=== PATIENT | female | born 1965 | race Caucasian/White ===

== ENCOUNTER 2018-01-17 08:41 | Day surgery (SDC) | payer OTHER, SELFPAY ==
[2018-01-17 08:58] VITALS: BP 140/86; PULSE 92; RESP 16; TEMP 36.7; O2SAT 100; BMI 25.6
[2018-01-17] MEDS: SODIUM CHLORIDE 0.9% 1,000 ML 200 ML IV (09:29)
--- NOTE | 2018-01-17 10:00 | PM.HP.1 ---
History of Present Illness Date Patient Seen: 01/17/18 Time Patient Seen: 10:01 Chief complaint: colonoscopy 40304 Narrative: Patient is woman here for a screening colonoscopy. She had a colonoscopy about 12 years ago to evaluate some abdominal complaints. No family history. Patient History Medical History Dysthymic disorder (Chronic) Panic disorder without agoraphobia (Chronic) Major depressive disorder, recurrent, moderate (Chronic) Actinic keratoses (Chronic Unknown) Anxiety (Chronic Unknown) Carpal tunnel syndrome (Chronic ~11/2016) Depression (Chronic Unknown) GERD (gastroesophageal reflux disease) (Chronic Unknown) Migraines (Chronic Unknown) Chickenpox (Resolved Unknown) Surgical History History of third molar tooth extraction History of tonsillectomy Status post appendectomy Family & Social History Family History: Reviewed 01/17/18 by Herberth Valdez MD Social History: household members none Tobacco & Substance use: Smoking Status Never smoker alcohol intake current Meds Home Medications Medication Instructions Recorded Confirmed Type multivitamin [Multiple Vitamins] 1 tab PO QDAY #0 11/26/16 01/17/18 History [Massage Therapy] ea 2XMONTH #24 05/23/17 11/28/17 Rx venlafaxine 100 mg tablet 150 mg PO ONCE tab 10/28/17 01/17/18 History eszopiclone 3 mg tablet 3 mg PO HS PRN #0 11/28/17 01/17/18 History ranitidine 150 mg capsule 150 mg PO BID #60 cap 01/15/18 01/17/18 Rx dextroamphetamine 10 mg PO DAILY 01/17/18 01/17/18 History temazepam 15 mg PO 4-6XD 01/17/18 01/17/18 History Allergies Allergy/AdvReac Type Severity Reaction Status Date / Time Sulfa (Sulfonamide Allergy Mild FACIAL Verified 11/28/17 12:32 Antibiotics) SWELLING [SULFA (SULFONAMIDE AND HIVES ANTIBIOTICS)] Review of Systems Review of Systems All systems reviewed & are unremarkable except as noted in HPI and below Exam Vital Signs (past 8 hours): - 01/17/18 08:58 Temperature 98.1 F Pulse Rate 92 H Respiratory Rate 16 Blood Pressure 140/86 Pulse Oximetry 100 Oxygen Delivery Method Room Air Narrative Exam Narrative: Operative no apparent distress. Eyes are nonicteric. Lungs are clear to auscultation without rales or rhonchi. Heart regular rate and rhythm without murmur gallop. Abdomen is soft nontender without mass. Patient is alert oriented x3. Assessment & Plan Plan: Assessment/Plan Narrative: For screening colonoscopy. I have discussed the procedure and the rationale with the patient including risks of bleeding, perforation which would necessitate a major operation, failure to find remove all lesions and the potential to tattoo. They appeared to understand and wished to proceed.
--- NOTE | 2018-01-17 10:02 | PM.PREOP ---
Pre-operative Note Interval Note Pre-op Check: Yes History & Physical exam performed today by Physician Changes: No ASA Class (for procedural sedation): I
[2018-01-17] MEDS: MIDAZOLAM 5 MG/5 ML VIAL IV (10:26)
[2018-01-17] MEDS: fentaNYL 250 MCG/5 ML INJ IV (10:27)
[2018-01-17 10:41] VITALS: BP 118/75; PULSE 96; RESP 15; TEMP 36.3; O2SAT 99
[2018-01-17 10:47] VITALS: BP 114/75; PULSE 92; RESP 16; O2SAT 98
--- NOTE | 2018-01-17 10:50 | PM.OP.ENDO ---
Operative Date/Time/Diagnoses Date of procedure: 01/17/18 Time of procedure: 10:40 Pre-op diagnosis: Screening examination due to age. This is her 1st screening exam though she did have a diagnostic colonoscopy 20 years ago. Post-op diagnosis: same (Normal examination except for some scarring on old hemorrhoidal disease) Procedure & Clinicians Study performed: Colonoscopy Same procedure as scheduled: Yes Indications: Screening Surgeon: Herberth Valdez Procedure Notes SCOAP/Timeout: Performed Procedure in detail: The patient was placed in the left lateral decubitus position and underwent IV sedation directed by the surgeon consisting of fentanyl and Versed. Digital exam was unremarkable. Sphincter tone normal.. The scope was inserted and advanced through the rectum into the sigmoid, descending, transverse, and ascending colon. No lesions were seen.. The cecum was reached identified by the ileocecal valve and the appendiceal opening. The ileocecal valve was successfully cannulated. The terminal ileum was normal in appearance. The scope was gradually brought out. No Polyps were found. The scope ultimately was retroflexed in the rectum. The appearance was[remarkable for scarring on whole old hemorrhoidal disease. There was no active ulcerations or inflammation]. The scope was removed and the patient tolerated the procedure well Scope withdrawal time: 10.5 min Sedation minutes: 25 Findings: internal hemorrhoids (No active inflammation) Specimen(s): none sent Complications: none Recommendations: Colonscopy in 10 years Follow up: as needed Disposition: PACU
[2018-01-17 10:51] VITALS: BP 113/75; PULSE 88; RESP 12; O2SAT 98
[2018-01-17 11:01] VITALS: BP 107/70; PULSE 84; RESP 12; O2SAT 98
[2018-01-17 11:12] VITALS: BP 122/76; PULSE 86; RESP 16; TEMP 36.8; O2SAT 97
== END 2018-01-17 11:17 | disposition home or self-care (01) ==
PROVIDERS: Family Provider Physician Assistant; PCP Physician Assistant; Visit Provider Specialist
PROC: 0DJD8ZZ Inspection of Lower Intestinal Tract, Via Natural or Artificial Opening Endoscopic (ICD-10-PCS; CPT 45378; principal; 2018-01-17 09:45)
DX: Z12.11 Encounter for screening for malignant neoplasm of colon (principal); K64.8 Other hemorrhoids
CPT/HCPCS: 45378; 99152; 99153; J2250; J3010

== ENCOUNTER → 2018-01-29 07:51 | Outpatient (CLI) | payer OTHER, SELFPAY ==
--- NOTE | 2018-01-29 | DI.MG.S_ITS ---
BILATERAL DIGITAL SCREENING MAMMOGRAM 3D/2D WITH CAD: 01/29/2018 CLINICAL: Routine screening. Family history of breast cancer. Comparison is made to exams dated: 12/28/2016 mammogram, 07/26/2015 mammogram, and 06/28/2014 mammogram - [facility]. The tissue of both breasts is extremely dense, which lowers the sensitivity of mammography. Current study was also evaluated with a Computer Aided Detection (CAD) system. New calcifications in the medial right breast at posterior depth on CC view, upper right breast at middle depth on MLO view, and lower right breast at posterior depth on MLO view are indeterminate. No other significant masses, calcifications, or other findings are seen in either breast. IMPRESSION: INCOMPLETE: NEEDS ADDITIONAL IMAGING EVALUATION New calcifications in the medial right breast at posterior depth on CC view, upper right breast at middle depth on MLO view, and lower right breast at posterior depth on MLO view are indeterminate. Further evaluation with additional and magnification views recommended. This exam was interpreted at Station ID: [id number]. NOTE: For mammograms, a report in lay terms will be sent to the patient. Approximately 15% of breast malignancies will not be visualized mammographically. In the management of a palpable breast mass, a negative mammogram must not discourage biopsy of a clinically suspicious lesion. Electronically Signed By: Ruiz Barrett M.D. ecl/:01/31/2018 03:03:57 letter sent: Additional Imaging Needed ACR BI-RADS Category 0: Incomplete 3340F
== END ==
PROVIDERS: Family Provider Physician Assistant; PCP Physician Assistant; Visit Provider Physician Assistant
DX: Z12.31 Encounter for screening mammogram for malignant neoplasm of breast (principal); Z80.3 Family history of malignant neoplasm of breast
CPT/HCPCS: 77063; 77067

== ENCOUNTER → 2018-01-29 13:00 | Outpatient (CLI) | payer OTHER, SELFPAY | PROVIDERS: Family Provider Physician Assistant; PCP Physician Assistant | DX: Z23 Encounter for immunization (principal) | CPT/HCPCS: 90471; 90686 ==

== ENCOUNTER → 2018-02-10 08:44 | Outpatient (CLI) | payer OTHER, SELFPAY ==
--- NOTE | 2018-02-10 08:45 | DI.MG.S_ITS ---
UNILATERAL RIGHT DIGITAL DIAGNOSTIC MAMMOGRAM 3D/2D WITH ADDITIONAL VIEWS: 02/10/2018 CLINICAL: Additional evaluation requested from prior study. Comparison is made to exams dated: 01/29/2018 mammogram, 12/28/2016 mammogram, and 07/26/2015 mammogram - [facility]. The tissue of the right breast is extremely dense, which lowers the sensitivity of mammography. The regional calcifications in the right breast middle depth superior region seen on the mediolateral oblique view only are unchanged from multiple prior studies. The clustered calcifications in the right breast at 4 o'clock posterior depth are unchanged from multiple prior studies. No other significant masses or calcifications are seen in the breast. IMPRESSION: There is no mammographic evidence of malignancy. A 1 year screening mammogram is recommended. This exam was interpreted at Station ID: [id number]. NOTE: For mammograms, a report in lay terms will be sent to the patient. Approximately 15% of breast malignancies will not be visualized mammographically. In the management of a palpable breast mass, a negative mammogram must not discourage biopsy of a clinically suspicious lesion. Electronically Signed By: Dannielle mata/:02/10/2018 09:27:41 letter sent: Normal Exam ACR BI-RADS Category 2: Benign Finding(s) 3342F
== END ==
PROVIDERS: Family Provider Physician Assistant; PCP Physician Assistant; Visit Provider Physician Assistant
DX: R92.1 Mammographic calcification found on diagnostic imaging of breast (principal)
CPT/HCPCS: 77065; G0279

== ENCOUNTER → 2018-06-03 11:22 | Outpatient (CLI) | payer OTHER, SELFPAY ==
--- NOTE | 2018-06-03 11:24 | DI.RAD.S_ITS ---
PROCEDURE: XR LUMBAR SPINE MIN 4V INDICATIONS: Radiculopathy left leg; left sided back pain TECHNIQUE: 5 views of the lumbar spine were acquired. COMPARISON: None. FINDINGS: Bones: 5 nonrib-bearing vertebrae are present. There is normal bony alignment. No vertebral body compression fractures. No suspicious bony lesions. Note is made of a mild degree of degenerative disc disease at L3-4 through L5-S1 and mild facet osteoarthritis also through these levels. No significant subluxation is associated, no spinal or foraminal stenosis is found. Soft tissues: Overlying bowel gas pattern is normal. No suspicious soft tissue calcifications. Oblique images: No pars defects. IMPRESSION: Mild degenerative disc disease and facet osteoarthritis from L3 inferiorly without expected spinal or foraminal stenosis. Dictated by: Marc Crews M.D. on 06/03/2018 at 13:26 Approved by: Marc Crews M.D. on 06/03/2018 at 13:27
== END ==
PROVIDERS: Family Provider Physician Assistant; PCP Physician Assistant; Visit Provider Physician Assistant
DX: M51.16 Intervertebral disc disorders with radiculopathy, lumbar region (principal); M47.26 Other spondylosis with radiculopathy, lumbar region; M51.17 Intervertebral disc disorders with radiculopathy, lumbosacral region; M47.27 Other spondylosis with radiculopathy, lumbosacral region
CPT/HCPCS: 72110

== ENCOUNTER → 2018-06-10 15:41 | Outpatient (CLI) | payer OTHER, SELFPAY ==
--- NOTE | 2018-06-10 15:42 | DI.MRI.S_ITS ---
PROCEDURE: MR LUMBAR SPINE WO CON INDICATIONS: left sided back pain with radiculopathy TECHNIQUE: Noncontrast sagittal T1 spin echo and T2 fast echo, sagittal STIR, axial T1 and T2 fast spin echo through the lumbar spine. In cases with scoliosis, additional coronal T2 fast spin echo may be performed. COMPARISON: [facility], CT, CHEST/ABD/PEL WITH CONTRAST, 06/27/2016, 9:17. [facility], CR, XR LUMBAR SPINE MIN 4V, 06/03/2018, 11:27. FINDINGS: Image quality: Excellent. Alignment and Curvature: 5 lumbar type vertebral bodies are present by plain film. There is normal bony alignment. Bone Marrow: Marrow is of normal overall signal. No acute vertebral body compression fractures. Left L5-S1 pars interarticularis defect is present. There is mild reactive signal within the endplates adjacent to the L4-L5 intervertebral disc. Spinal Cord: Conus medullaris terminates at the mid L2 level. Visualized cord demonstrates normal signal and size. Paraspinous Soft Tissues: No paravertebral masses. L1-L2: Mild facet and ligamentum flavum hypertrophy. Mild epidural lipomatosis. No significant canal, nor foraminal stenosis. L2-L3: Mild bilateral facet and ligamentum flavum hypertrophy. Mild epidural lipomatosis. No significant canal, nor foraminal stenosis. L3-L4: Mild bilateral facet hypertrophy. Mild diffuse disc bulge. No significant canal, nor foraminal stenosis. L4-L5: Mild disc desiccation and mild diffuse disc bulge. Mild bilateral facet hypertrophy. Mild canal stenosis. No foraminal stenosis. L5-S1: Mild bilateral facet hypertrophy. No significant canal stenosis. Mild bilateral foraminal stenosis. IMPRESSION: 1.Multilevel degenerative disc and facet disease, as well as ligamentum flavum hypertrophy and epidural lipomatosis. 2. Mild multilevel Canal, and foraminal stenoses. No neural impingement. 3. Left L5-S1 pars interarticularis defect. Dictated by: Tiana Lovett M.D. on 06/10/2018 at 16:31 Approved by: Tiana Lovett M.D. on 06/10/2018 at 16:37
== END ==
PROVIDERS: PCP Physician Assistant; Visit Provider Physician Assistant
DX: M51.16 Intervertebral disc disorders with radiculopathy, lumbar region (principal); M48.061 Spinal stenosis, lumbar region without neurogenic claudication; M43.07 Spondylolysis, lumbosacral region; E88.2 Lipomatosis, not elsewhere classified
CPT/HCPCS: 72148

== ENCOUNTER → 2018-11-25 07:41 | Outpatient (CLI) | payer OTHER, SELFPAY ==
--- NOTE | 2018-11-25 07:42 | DI.US.S_ITS ---
PROCEDURE: US PELVIC COMPLETE INDICATIONS: DISCHARGE, BLOATING TECHNIQUE: Real-time scanning was performed of the pelvic organs, with image documentation. Additional endovaginal scanning was necessary due to incomplete visualization of the adnexal and endometrial structures by transabdominal scanning. COMPARISON: [facility], CT, CHEST/ABD/PEL WITH CONTRAST, 06/27/2016, 9:17. [facility], US, PELVIC COMPLETE, 09/10/2012, 8:16. FINDINGS: Transabdominal scanning: Limited scanning through the kidneys shows no hydronephrosis. No pathologic free abdominal or pelvic fluid. Endovaginal scanning: Uterus: Uterus is normal in size at 5.3 x 3.3 x 1.9 cm. The endometrium measures 3 mm in combined thickness. There is a tiny cyst along the right lateral margin of the endometrial stripe. No abnormal vascularity can be seen of the endometrial stripe. Ovaries: The right ovary measures 2.2 x 1.7 x 1.2 cm. The left ovary measures 2.2 x 1.6 x 1 cm. The ovaries have a normal sonographic appearance. No adnexal masses are seen. IMPRESSION: Normal pelvic ultrasound, without an imaging explanation found for the patient's presenting symptoms. The endometrial stripe measures within normal limits for thickness in this postmenopausal patient. Dictated by: James Garner M.D. on 11/25/2018 at 8:43 Approved by: James Garner M.D. on 11/25/2018 at 8:46
== END ==
PROVIDERS: PCP Physician Assistant; Visit Provider Physician Assistant
DX: N89.8 Other specified noninflammatory disorders of vagina (principal); R14.0 Abdominal distension (gaseous)
CPT/HCPCS: 76856

== ENCOUNTER → 2019-02-10 14:23 | Outpatient (CLI) | payer OTHER, SELFPAY | PROVIDERS: PCP Physician Assistant | DX: Z23 Encounter for immunization (principal) | CPT/HCPCS: 90471; 90686 ==

== ENCOUNTER → 2019-05-07 07:46 | Outpatient (CLI) | payer OTHER, SELFPAY ==
--- NOTE | 2019-05-07 | DI.MG.S_ITS ---
BILATERAL DIGITAL SCREENING MAMMOGRAM 3D/2D WITH CAD: 05/07/2019 CLINICAL: Routine screening. Family history of breast cancer. Comparison is made to exams dated: 01/29/2018 mammogram, 12/28/2016 mammogram, and 07/26/2015 mammogram - [facility]. The tissue of both breasts is extremely dense, which lowers the sensitivity of mammography. Current study was also evaluated with a Computer Aided Detection (CAD) system. No significant masses, calcifications, or other findings are seen in either breast. There has been no significant interval change. IMPRESSION: NEGATIVE There is no mammographic evidence of malignancy. A 1 year screening mammogram is recommended. This exam was interpreted at Station ID: [id number]. NOTE: For mammograms, a report in lay terms will be sent to the patient. Approximately 15% of breast malignancies will not be visualized mammographically. In the management of a palpable breast mass, a negative mammogram must not discourage biopsy of a clinically suspicious lesion. Electronically Signed By: Dannielle mata/bill:05/08/2019 10:31:59 letter sent: Normal Exam ACR BI-RADS Category 1: Negative 3341F
== END ==
PROVIDERS: PCP Physician Assistant; Visit Provider Physician Assistant
DX: Z12.31 Encounter for screening mammogram for malignant neoplasm of breast (principal); Z80.3 Family history of malignant neoplasm of breast
CPT/HCPCS: 77063; 77067

== ENCOUNTER → 2019-09-29 07:32 | Outpatient (CLI) | payer OTHER, SELFPAY ==
[2019-09-29 08:17] LABS: Add Manual Diff / Slide Review NO; Basophils Absolute Auto 100 /uL (0-100); Basophils Percent Auto 0.6 % (0-2); Eosinophils Absolute Auto 200 /uL (0-450); Eosinophils Percent Auto 2.8 % (2-4); Hematocrit 40.2 % (36-46); Hemoglobin 13.4 g/dL (12.0-16.0); Lymphocytes Absolute Auto 3600 /uL (1100-4500); Lymphocytes Percent Auto 42.8 % (25-40); Mean Corpuscular HGB Conc 33.3 % (30-36); Mean Corpuscular Hemoglobin 29.6 PG (26-34); Monocytes Absolute Auto 500 /uL (0-900); Neutrophils Absolute Auto 4000 /uL (1500-7000); Neutrophils Percent Auto 47.8 % (50-75); Platelet Count 356 X10^3/uL (150-400); Red Blood Cell Count 4.52 X10^6/uL (4.0-5.2); Red Cell Distribution Width 12.8 % (11.6-14.8); White Blood Cell Count 8.4 X10^3/uL (4.5-11.0)
[2019-09-29 08:48] LABS: Alanine Aminotransferase 20 IU/L (<35); Albumin 4.3 g/dL (3.5-5.0); Albumin Globulin Ratio 1.5 (1.0-2.8); Alkaline Phosphatase 94 U/L (38-126); Aspartate Aminotransferase 27 IU/L (14-36); BUN Creatinine Ratio 26.8 (6-22); Bilirubin Total 0.4 mg/dL (0.2-1.3); Blood Urea Nitrogen 19 mg/dL (7-17); Calcium 9.1 mg/dL (8.4-10.2); Carbon Dioxide 28 mmol/L (22-32); Chloride 103 mmol/L (98-107); Cholesterol 207 mg/dL (140-199); Estimated Glomerular Filt Rate > 60.0 mL/min (>60); Globulin 2.9 g/dL (1.7-4.1); Glucose 104 mg/dL (70-100); HDL Cholesterol 63 mg/dL (40-60); HEMOLYSIS < 15 (0-50); LDL Cholesterol Calculated 129 mg/dL (<100); Potassium 4.1 mmol/L (3.4-5.1); Sodium 138 mmol/L (137-145); Total Protein 7.2 g/dL (6.3-8.2); Triglycerides 74 mg/dL (35-150)
[2019-09-29 09:05] LABS: Free T3, Triiodothyronine Free 3.31 pg/mL (2.77-5.27); Free T4, Direct Thyroxine 0.71 ng/dL (0.78-2.19)
[2019-09-29 09:19] LABS: Thyroid Stimulating Hormone 0.86 uIU/mL (0.47-4.68)
[2019-09-29 09:51] LABS: Creatinine Urine Random 99.3 mg/dL
[2019-09-29 09:59] LABS: Microalbumin Urine Random < 0.6 mg/dL (0-1.6)
== END ==
PROVIDERS: PCP Nurse Practitioner; Referring Provider Nurse Practitioner; Visit Provider Nurse Practitioner
DX: F33.41 Major depressive disorder, recurrent, in partial remission (principal); F41.0 Panic disorder [episodic paroxysmal anxiety]; G47.00 Insomnia, unspecified; R40.0 Somnolence
CPT/HCPCS: 36415; 80053; 80061; 82043; 82570; 84439; 84443; 84481; 85025

== ENCOUNTER → 2020-02-03 11:58 | Outpatient (CLI) | payer OTHER, SELFPAY ==
[2020-02-04 15:44] LABS: COVID19 Sendout Not Detected (Not Detect)
== END ==
PROVIDERS: PCP Family Medicine; Visit Provider Physician Assistant
DX: Z11.59 Encounter for screening for other viral diseases (principal)
CPT/HCPCS: 87635

== ENCOUNTER → 2020-02-07 10:05 | Outpatient (CLI) | payer OTHER, SELFPAY ==
[2020-02-08 14:12] LABS: COVID19 Sendout Not Detected (Not Detect)
== END ==
PROVIDERS: PCP Family Medicine; Visit Provider Physician Assistant
DX: Z11.59 Encounter for screening for other viral diseases (principal)
CPT/HCPCS: 87635

== ENCOUNTER → 2020-02-09 12:54 | Outpatient (CLI) | payer OTHER, SELFPAY ==
[2020-02-09 13:41] LABS: Add Manual Diff / Slide Review NO; Basophils Absolute Auto 100 /uL (0-100); Basophils Percent Auto 0.7 % (0-2); Eosinophils Absolute Auto 200 /uL (0-450); Eosinophils Percent Auto 1.9 % (2-4); Hematocrit 42.9 % (36-46); Hemoglobin 14.5 g/dL (12.0-16.0); Lymphocytes Absolute Auto 3200 /uL (1100-4500); Mean Corpuscular HGB Conc 33.9 % (30-36); Mean Corpuscular Hemoglobin 30.4 PG (26-34); Mean Corpuscular Volume 89.5 fL (80-100); Monocytes Absolute Auto 500 /uL (0-900); Neutrophils Absolute Auto 5000 /uL (1500-7000); Neutrophils Percent Auto 55.4 % (50-75); Platelet Count 378 X10^3/uL (150-400); Red Blood Cell Count 4.79 X10^6/uL (4.0-5.2); Red Cell Distribution Width 12.7 % (11.6-14.8)
[2020-02-09 14:12] LABS: Alanine Aminotransferase 34 IU/L (<35); Albumin 4.7 g/dL (3.5-5.0); Albumin Globulin Ratio 1.6 (1.0-2.8); Alkaline Phosphatase 108 U/L (38-126); Aspartate Aminotransferase 32 IU/L (14-36); BUN Creatinine Ratio 18.5 (6-22); Bilirubin Total 0.4 mg/dL (0.2-1.3); Blood Urea Nitrogen 15 mg/dL (7-17); Carbon Dioxide 29 mmol/L (22-32); Chloride 102 mmol/L (98-107); Cholesterol 236 mg/dL (140-199); Estimated Glomerular Filt Rate > 60.0 mL/min (>60); Globulin 2.9 g/dL (1.7-4.1); Glucose 98 mg/dL (70-100); HDL Cholesterol 86 mg/dL (40-60); HEMOLYSIS < 15 (0-50); LDL Cholesterol Calculated 118 mg/dL (<100); Potassium 4.6 mmol/L (3.4-5.1); Sodium 140 mmol/L (137-145); Total Protein 7.6 g/dL (6.3-8.2); Triglycerides 162 mg/dL (35-150); Uric Acid 3.3 mg/dL (2.5-6.2)
[2020-02-09 14:15] LABS: Rheumatoid Factor < 8.6 IU/mL (<12.0)
[2020-02-09 14:28] LABS: Free T3, Triiodothyronine Free 3.22 pg/mL (2.77-5.27); Free T4, Direct Thyroxine 0.79 ng/dL (0.78-2.19)
[2020-02-09 14:41] LABS: Thyroid Stimulating Hormone 0.694 uIU/mL (0.47-4.68)
[2020-02-11 16:55] LABS: ANA Screen, IFA Negative (.)
[2020-02-11 23:35] LABS: CCP Antibodies IgG/IgA 5 units (0-19)
== END ==
PROVIDERS: PCP Family Medicine; Referring Provider Family Medicine; Visit Provider Family Medicine
DX: M25.50 Pain in unspecified joint (principal)
CPT/HCPCS: 36415; 80053; 80061; 84439; 84443; 84481; 84550; 85025; 86038; 86200; 86430

== ENCOUNTER → 2020-02-18 | Outpatient (CLI) | payer OTHER, SELFPAY | PROVIDERS: PCP Family Medicine; Referring Provider Internal Medicine; Visit Provider Internal Medicine | DX: Z23 Encounter for immunization (principal) | CPT/HCPCS: 90471; 90686 ==

== ENCOUNTER → 2020-05-25 16:04 | Outpatient (CLI) | payer OTHER, SELFPAY ==
[2020-05-25] MEDS: COVID-19 VACC(MODERNA-1)/PF 100 MCG/0.5 ML VIAL IM (16:11)
== END ==
PROVIDERS: PCP Family Medicine; Referring Provider Internal Medicine; Visit Provider Internal Medicine
DX: Z23 Encounter for immunization (principal)
CPT/HCPCS: 0011A; 91301

== ENCOUNTER → 2020-06-21 14:14 | Outpatient (CLI) | payer OTHER, SELFPAY ==
[2020-06-21] MEDS: COVID-19 VACC #2, MRNA(MOD) 100 MCG/0.5 ML VIAL IM (14:17)
== END ==
PROVIDERS: PCP Family Medicine; Visit Provider Internal Medicine
DX: Z23 Encounter for immunization (principal)
CPT/HCPCS: 0012A; 91301

== ENCOUNTER → 2020-07-01 08:20 | Outpatient (CLI) | payer OTHER, SELFPAY ==
--- NOTE | 2020-07-01 08:22 | DI.MG.S_ITS ---
BILATERAL DIGITAL SCREENING MAMMOGRAM 3D/2D WITH CAD: 07/01/2020 CLINICAL: Routine screening. Family history of breast cancer. Comparison is made to exams dated: 05/07/2019 mammogram, 01/29/2018 mammogram, 12/28/2016 mammogram, 02/10/2018 mammogram, and 07/26/2015 mammogram - [facility]. The tissue of both breasts is extremely dense, which lowers the sensitivity of mammography. Current study was also evaluated with a Computer Aided Detection (CAD) system. No significant masses, calcifications, or other findings are seen in either breast. There has been no significant interval change. IMPRESSION: NEGATIVE There is no mammographic evidence of malignancy. A 1 year screening mammogram is recommended. This exam was interpreted at Station ID: [id number]. NOTE: For mammograms, a report in lay terms will be sent to the patient. Approximately 15% of breast malignancies will not be visualized mammographically. In the management of a palpable breast mass, a negative mammogram must not discourage biopsy of a clinically suspicious lesion. Electronically Signed By: Heron khan/bill:07/01/2020 13:31:24 letter sent: Normal Exam ACR BI-RADS Category 1: Negative 3341F
== END ==
PROVIDERS: PCP Physician Assistant; Referring Provider Physician Assistant; Visit Provider Physician Assistant
DX: Z12.31 Encounter for screening mammogram for malignant neoplasm of breast (principal); Z80.3 Family history of malignant neoplasm of breast
CPT/HCPCS: 77063; 77067

== ENCOUNTER → 2020-10-10 07:43 | Outpatient (CLI) | payer OTHER, SELFPAY ==
--- NOTE | 2020-10-10 07:47 | DI.RAD.S_ITS ---
PROCEDURE: XR SACROILIAC JOINT MIN 3V INDICATIONS: PAIN TECHNIQUE: 3 views of the sacroiliac joints were acquired. COMPARISON: None. FINDINGS: Bones: No bony erosions or ankylosis. No suspicious bony lesions. No fractures. Soft tissues: Overlying bowel gas pattern is normal. No suspicious soft tissue densities. IMPRESSION: SI joints are patent. Dictated by: Kimmie Morrison M.D. on 10/10/2020 at 17:23 Approved by: Kimmie Morrison M.D. on 10/10/2020 at 17:23
--- NOTE | 2020-10-10 07:47 | DI.RAD.S_ITS ---
PROCEDURE: XR HIP W PEL IF DONE RT 2V COMPARISON: None. INDICATIONS: PAIN FINDINGS: No visualized fracture or dislocation. No suspicious osseous lesions. Soft tissues are unremarkable. Minimal bilateral hip joint space narrowing suggestive of early arthritis. IMPRESSION: No visualized acute fracture or dislocation. However, if clinical concern and/or pain persist, short interval imaging followup in 7-10 days is recommended, as occult injury cannot be definitively excluded. Dictated by: Kimmie Morrison M.D. on 10/10/2020 at 17:11 Approved by: Kimmie Morrison M.D. on 10/10/2020 at 17:12
== END ==
PROVIDERS: PCP Physician Assistant; Referring Provider Physician Assistant; Visit Provider Physician Assistant
DX: M25.551 Pain in right hip (principal); M25.541 Pain in joints of right hand
CPT/HCPCS: 72202; 73502

== ENCOUNTER → 2021-01-12 07:36 | Outpatient (CLI) | payer OTHER, SELFPAY ==
[2021-01-12 08:12] LABS: Add Manual Diff / Slide Review NO; Basophils Absolute Auto 0 /uL (0-100); Basophils Percent Auto 0.5 % (0-2); Eosinophils Absolute Auto 200 /uL (0-450); Eosinophils Percent Auto 2.8 % (2-4); Hematocrit 42.4 % (36-46); Hemoglobin 13.8 g/dL (12.0-16.0); Lymphocytes Absolute Auto 3600 /uL (1100-4500); Lymphocytes Percent Auto 43.5 % (25-40); Mean Corpuscular HGB Conc 32.6 % (30-36); Mean Corpuscular Hemoglobin 29.1 PG (26-34); Mean Corpuscular Volume 89.3 fL (80-100); Monocytes Absolute Auto 500 /uL (0-900); Monocytes Percent Auto 6.2 % (3-14); Neutrophils Absolute Auto 3900 /uL (1500-7000); Platelet Count 385 X10^3/uL (150-400); Red Blood Cell Count 4.75 X10^6/uL (4.0-5.2); White Blood Cell Count 8.4 X10^3/uL (4.5-11.0)
[2021-01-12 08:59] LABS: Alanine Aminotransferase 29 IU/L (<35); Albumin 4.4 g/dL (3.5-5.0); Albumin Globulin Ratio 1.8 (1.0-2.8); Alkaline Phosphatase 100 U/L (38-126); Aspartate Aminotransferase 32 IU/L (14-36); BUN Creatinine Ratio 14.5 (6-22); Bilirubin Total 0.4 mg/dL (0.2-1.3); Blood Urea Nitrogen 11 mg/dL (7-17); Calcium 9.9 mg/dL (8.4-10.2); Carbon Dioxide 27 mmol/L (22-32); Chloride 104 mmol/L (98-107); Cholesterol 214 mg/dL (140-199); Estimated Glomerular Filt Rate > 60.0 mL/min (>60); Globulin 2.5 g/dL (1.7-4.1); Glucose 95 mg/dL (70-100); HDL Cholesterol 75 mg/dL (40-60); HEMOLYSIS < 15 (0-50); LDL Cholesterol Calculated 114 mg/dL (<100); Potassium 4.5 mmol/L (3.4-5.1); Sodium 138 mmol/L (137-145); Total Protein 6.9 g/dL (6.3-8.2); Triglycerides 125 mg/dL (35-150)
[2021-01-12 09:16] LABS: Vitamin D 25 Hydroxy (D3) 24.6 ng/mL (30.0-100.0)
[2021-01-12 09:31] LABS: TSH w/ Reflex to FT4 1.04 uIU/mL (0.47-4.68)
[2021-01-12 09:49] LABS: Vitamin B12 Reflex MMA if <400 706 pg/mL (239-931)
== END ==
PROVIDERS: PCP Family Medicine; Referring Provider Family Medicine; Visit Provider Family Medicine
DX: F33.41 Major depressive disorder, recurrent, in partial remission (principal); R53.82 Chronic fatigue, unspecified; R63.5 Abnormal weight gain
CPT/HCPCS: 36415; 80053; 80061; 82306; 82607; 84443; 85025

== ENCOUNTER → 2021-01-17 09:10 | Outpatient (CLI) | payer OTHER, SELFPAY ==
[2021-01-17 10:14] LABS: COVID19 -Nasal RAPID Negative (Negative)
== END ==
PROVIDERS: PCP Family Medicine; Visit Provider Physician Assistant
DX: Z20.822 Contact with and (suspected) exposure to COVID-19 (principal)
CPT/HCPCS: 87635

== ENCOUNTER → 2021-01-19 11:21 | Outpatient (CLI) | payer OTHER, SELFPAY ==
[2021-01-19 13:41] LABS: COVID19 -Nasal RAPID Negative (Negative)
== END ==
PROVIDERS: PCP Family Medicine; Visit Provider Nurse Practitioner
DX: Z20.822 Contact with and (suspected) exposure to COVID-19 (principal)
CPT/HCPCS: 87635

== ENCOUNTER → 2021-01-26 13:43 | Outpatient (CLI) | payer OTHER, SELFPAY ==
[2021-01-26 14:14] LABS: COVID19 -Nasal RAPID Negative (Negative)
== END ==
PROVIDERS: PCP Family Medicine; Visit Provider Nurse Practitioner
DX: Z20.822 Contact with and (suspected) exposure to COVID-19 (principal)
CPT/HCPCS: 87635

== ENCOUNTER → 2021-02-07 14:28 | Outpatient (CLI) | payer OTHER, SELFPAY ==
--- NOTE | 2021-02-07 14:31 | DIET.CONS ---
Dietary Consultation Note Assessment: 55y F attending RD visit for help with recent unwanted weight gain. Pt in menopause- last period 5-6y ago Has noticed some bloating and weight gain recently, was at 140# for many years, creeped up to 164# last year and now at 170# 5y ago, lives c partner and their child who are carb eaters, does feel like she is eating differently not so mobile at work, more sedentary also no intentional physical activity. 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 Pt had good luck in past losing weight using [employer]. Pt felt the regular weigh ins and attending with her mom kept her successful, also was doing intermittent walking. Usual Day: wakes 6:15am gets ready for work, leaves 6:50am black coffee on way to work makes smoothie: frozen mixed fruit, almond milk, water, vegan protein powder sometimes another cup coffee Sn: 1/2 cup mixed nuts with chocolate chips L: half turkey sandwich with chips and grapes, half BLT c grapes-water or Diet Pepsi sometimes snack on pistachios or a few chips D: eats with family, hamburger pie, papa murphys, grilled steak, tacos after dinner has SF popcicle or SF chocolate doesn't have consistent vegetable intake: no brussels sprouts and asparagus, prefers raw cabbage and cauliflower loves garlic, only eats cooked some lactose intolerance no fish, usually beef and chicken, sometimes pork Ht: 5'2 3/4 Wt: 170# BMI: 30.1 UBW: 140s for many years without having to monitor Weight Goal: 130-140# Labs: Vitamin D 24.[address] Impression: Pt experiencing weight gain that is multifactoral with small factors adding up to 30# gain over a few years. Pt menopausal with fat redistribution, pt not as active at work and not active outside work, pt consuming too few vegetables and snacking on ~400 kcals of nuts daily as a morning snack. Nutrition Dx: abnormal weight gain r/t physical inactivity and undesirable food choices aeb 30# weight gain over a few years, pt is menopausal with no regular intentional physical activity, low intake vegetables, and overconsumption of mixed nuts. Interventions: 1. To reverse weight gain pattern and support health, pt will start walking at lunch break and after dinner most days. 2. To support healthy weight, muscle mass, reduce belly fat, pt will consider strength training routine twice per week. 3. Set pt to 1350kcals/day for weight loss of 1-2#/w split up throughout the day. Pt will go home and assess calorie level of morning smoothie, pt will substitute different morning snack for high kcal mixed nuts (or much smaller portion), pt will intentionally start including veggies at dinner. F/u in 4w to asess progress and problem solve barriers.
[2021-02-07 14:58] VITALS: BMI 30.1
== END ==
PROVIDERS: PCP Family Medicine; Referring Provider Family Medicine; Visit Provider Family Medicine
DX: E66.9 Obesity, unspecified (principal); Z68.30 Body mass index [BMI] 30.0-30.9, adult; Z71.3 Dietary counseling and surveillance
CPT/HCPCS: 97802

== ENCOUNTER → 2021-02-23 11:05 | Outpatient (CLI) | payer OTHER, SELFPAY | PROVIDERS: PCP Family Medicine; Referring Provider Internal Medicine; Visit Provider Internal Medicine | DX: Z23 Encounter for immunization (principal) | CPT/HCPCS: 90471; 90686 ==

== ENCOUNTER → 2021-04-07 11:20 | Outpatient (CLI) | payer OTHER, SELFPAY ==
[2021-04-07] MEDS: COVID-19 VACC #3, MRNA(MOD) 50 MCG/0.25 ML VIAL IM (11:25)
== END ==
PROVIDERS: PCP Family Medicine; Visit Provider Internal Medicine
DX: Z23 Encounter for immunization (principal)
CPT/HCPCS: 0013A; 91301

== ENCOUNTER → 2021-07-12 13:15 | Outpatient (CLI) | payer OTHER, SELFPAY ==
[2021-07-12 13:52] LABS: COVID19 -Nasal RAPID Negative (Negative)
== END ==
PROVIDERS: PCP Family Medicine; Visit Provider Physician Assistant
DX: Z20.822 Contact with and (suspected) exposure to COVID-19 (principal)
CPT/HCPCS: 87635

== ENCOUNTER → 2021-09-28 08:21 | Outpatient (CLI) | payer OTHER, SELFPAY ==
--- NOTE | 2021-09-28 | DI.MG.S_ITS ---
BILATERAL DIGITAL SCREENING MAMMOGRAM 3D/2D WITH CAD: 09/28/2021 CLINICAL: Routine screening. Family history of breast cancer. Comparison is made to exams dated: 07/01/2020 mammogram, 05/07/2019 mammogram, and 01/29/2018 mammogram - [facility]. The tissue of both breasts is extremely dense, which lowers the sensitivity of mammography. Current study was also evaluated with a Computer Aided Detection (CAD) system. There are benign calcifications in both breasts. No significant masses, calcifications, or other findings are seen in either breast. There has been no significant interval change. IMPRESSION: BENIGN There is no mammographic evidence of malignancy. A 1 year screening mammogram is recommended. This exam was interpreted at Station ID: [id number]. NOTE: For mammograms, a report in lay terms will be sent to the patient. Approximately 15% of breast malignancies will not be visualized mammographically. In the management of a palpable breast mass, a negative mammogram must not discourage biopsy of a clinically suspicious lesion. Electronically Signed By: Eugene Espinosa acr/bill:09/28/2021 09:22:05 letter sent: Normal Exam ACR BI-RADS Category 2: Benign Finding(s) 3342F
== END ==
PROVIDERS: PCP Family Medicine; Referring Provider Family Medicine; Visit Provider Family Medicine
DX: Z12.31 Encounter for screening mammogram for malignant neoplasm of breast (principal); Z80.3 Family history of malignant neoplasm of breast
CPT/HCPCS: 77063; 77067

== ENCOUNTER → 2022-02-12 09:00 | Outpatient (CLI) | payer OTHER, SELFPAY | PROVIDERS: PCP Family Medicine; Referring Provider Internal Medicine; Visit Provider Internal Medicine | DX: Z23 Encounter for immunization (principal) | CPT/HCPCS: 90471; 90686 ==

== ENCOUNTER 2022-02-26 09:37 | Emergency (ER) | payer OTHER, SELFPAY ==
[2022-02-26 10:04] VITALS: BP 140/81; PULSE 93; RESP 16; TEMP 37.3; O2SAT 100; BMI 31.1
--- NOTE | 2022-02-26 11:52 | PC.NURSE ---
PT has bright red blood liquid stools seen in toilet
[2022-02-26 11:57] LABS: Add Manual Diff / Slide Review NO; Basophils Absolute Auto 100 /uL (0-100); Basophils Percent Auto 0.6 % (0-2); Eosinophils Absolute Auto 100 /uL (0-450); Eosinophils Percent Auto 0.7 % (2-4); Hematocrit 41.5 % (36-46); Lymphocytes Absolute Auto 2200 /uL (1100-4500); Lymphocytes Percent Auto 17.7 % (25-40); Mean Corpuscular HGB Conc 33.7 % (30-36); Mean Corpuscular Hemoglobin 29.8 PG (26-34); Mean Corpuscular Volume 88.6 fL (80-100); Monocytes Absolute Auto 600 /uL (0-900); Monocytes Percent Auto 4.8 % (3-14); Neutrophils Absolute Auto 9600 /uL (1500-7000); Neutrophils Percent Auto 76.2 % (50-75); Platelet Count 373 X10^3/uL (150-400); Red Blood Cell Count 4.69 X10^6/uL (4.0-5.2); Red Cell Distribution Width 13.5 % (11.6-14.8); White Blood Cell Count 12.6 X10^3/uL (4.5-11.0)
[2022-02-26 12:11] LABS: Alanine Aminotransferase 29 IU/L (<35); Albumin 4.3 g/dL (3.5-5.0); Albumin Globulin Ratio 1.4 (1.0-2.8); Alkaline Phosphatase 113 U/L (38-126); Aspartate Aminotransferase 24 IU/L (14-36); BUN Creatinine Ratio 17.9 (6-22); Bilirubin Total 0.4 mg/dL (0.2-1.3); Blood Urea Nitrogen 12 mg/dL (7-17); Carbon Dioxide 26 mmol/L (22-32); Chloride 101 mmol/L (98-107); Estimated Glomerular Filt Rate > 60 mL/min (>60); Glucose 112 mg/dL (70-100); HEMOLYSIS < 15 (0-50); Potassium 3.6 mmol/L (3.4-5.1); Sodium 137 mmol/L (137-145); Total Protein 7.3 g/dL (6.3-8.2)
--- NOTE | 2022-02-26 13:18 | DI.CT.S_ITS ---
PROCEDURE: CT ABDOMEN PELVIS W CON INDICATIONS: Left lower quadrant pain, bright red blood per rectum TECHNIQUE: After the administration of intravenous contrast, axial sections acquired from the lung bases to the pubic symphysis. Coronal and sagittal reformats were performed. For radiation dose reduction, the following was used: automated exposure control, adjustment of mA and/or kV according to patient size. COMPARISON: None. FINDINGS: Lower thorax: The lung bases are clear. Heart size normal. No hiatal hernia. Liver: Normal in size and attenuation. No contour deformity present. 1.9 cm simple left hepatic cyst Biliary system: No calcified cholelithiasis or pericholecystic inflammation. No intra or extrahepatic bile duct dilatation. Pancreas: Unremarkable without mass or inflammation evident. Spleen: Normal in size and density. Adrenals: Normal morphology and density. Reproductive system: Unremarkable as visualized. Urinary system: Normal renal size and attenuation. No renal calculi, hydronephrosis, or solid mass present. Urinary bladder unremarkable. Gastrointestinal system: There is long segment wall thickening and pericolonic inflammatory change involving the left colon. No evidence of abscess or free air. No bowel obstruction. Appendix: Appendectomy Peritoneal spaces: No mesenteric or retroperitoneal adenopathy. No free air. No free fluid. Vasculature: The IVC, aorta and iliac vasculature are unremarkable. Abdominal wall: Abdominal wall intact without evidence of ventral or inguinal hernias. Musculoskeletal: Normal bone mineralization. No acute fractures. IMPRESSION: 1. Left-sided colitis. The entire left colon shows wall thickening and pericolonic inflammatory change without evidence abscess, perforation obstruction. Approved by: Ganesh Pyle M.D. on 02/26/2022 at 13:59
[2022-02-26] MEDS: SODIUM CHLORIDE 0.9% 1,000 ML 1000 ML IV (13:47)
[2022-02-26] MEDS: MORPHINE 4 MG/ML INJ IV (13:48)
[2022-02-26] MEDS: ONDANSETRON 4 MG/2 ML INJ IV (13:48)
[2022-02-26 13:54] VITALS: BP 163/86; PULSE 89; RESP 18; O2SAT 100
[2022-02-26 15:08] LABS: RBC Urine 1-5/HPF (0-5/HPF); Squamous Epithelial Cell Urine 1-5 /HPF (0-5/HPF); WBC Urine 0-1/HPF (0-5/HPF)
[2022-02-26 15:09] LABS: Bacteria Urine None Seen; Culture Indicated Urine Cult Not Indicated; Mucus Urine 1+ (Negative)
[2022-02-26 15:28] VITALS: BP 151/87; PULSE 85; RESP 18; O2SAT 98
--- NOTE | 2022-02-26 17:21 | ED.GIBLEED ---
HPI - GI Bleed <Gayle Logan PA-C - Last Filed: 02/26/22 20:28> General Chief complaint: GI Bleed Stated complaint: cramping, bloody stool Time Seen by Provider: 02/26/22 11:01 Source: patient Mode of arrival: Ambulatory History of Present Illness HPI Narrative: 56-year-old female with past medical history migraine presents to the ED with 2 days of bloody stools. Patient states that she is had an episode of diarrhea last night, had more formed stools this morning but with bright red blood. Patient endorses multiple soft formed stools with bright red blood this morning. Patient denies prior episodes of bloody stools. Patient does not have a history of hemorrhoids. Patient has a distant history of anal fissures, however patient has nose such painful symptoms this time around. Patient denies a history of diverticulitis. Patient denies prolonged NSAID use. Patient is not on blood thinners. Patient denies fever, chills, nausea, vomiting, chest pain, shortness of breath, dysuria, flank pain, lightheadedness, dizziness, syncope. Patient does endorse some abdominal cramping in the lower abdomen. Related Data Home Medications Medication Instructions Recorded Confirmed multivitamin (Multiple Vitamins 1 tab PO QDAY ##0 11/26/16 07/12/21 tablet) Previous Rx's Medication Instructions Recorded [Massage Therapy] 1 each topical 2XMONTH ##24 06/03/18 hydroxyzine HCl 25 mg tablet 25 mg PO QID PRN anxiety or 09/28/19 insomnia #90 tabs venlafaxine 150 mg See Rx Instructions .Route 09/04/21 capsule,extended release 24 hr .COMPLEX #90 caps hyoscyamine sulfate 0.125 mg 0.25 mg PO QID PRN dyspepsia #30 02/26/22 tablet (Levsin) tabs Allergies Allergy/AdvReac Type Severity Reaction Status Date / Time Sulfa (Sulfonamide Allergy Mild FACIAL Verified 02/26/22 10:09 Antibiotics) SWELLING [SULFA (SULFONAMIDE AND HIVES ANTIBIOTICS)] Review of Systems <Gayle Logan PA-C - Last Filed: 02/26/22 20:28> Review of Systems ROS Unobtainable: All systems reviewed & are unremarkable except as noted in HPI and below Constitutional Constitutional: Denies chills, Denies fatigue, Denies fever(s), Denies frequent falls, Denies lethargy and Denies weakness Eyes Eyes: Denies change in vision, Denies eye discharge, Denies irritation and Denies loss of vision ENT Ears, Nose, Mouth, and Throat: Denies change in voice, Denies dizziness, Denies neck pain, Denies sore throat and Denies throat swelling Cardiovascular Cardiovascular: Denies chest pain, Denies irregular heart rhythm, Denies lightheadedness, Denies palpitations, Denies dyspnea, Denies dyspnea on exertion and Denies orthopnea Respiratory Respiratory: Denies cough, Denies dyspnea, Denies dyspnea on exertion and Denies wheezing Gastrointestinal Gastrointestinal: Reports abdominal pain, Reports hematochezia, Denies change in bowel habits, Reports diarrhea, Reports nausea and Reports vomiting Genitourinary Genitourinary: Denies hematuria, Denies flank pain, Denies urinary incontinence and Denies urinary urgency Musculoskeletal Musculoskeletal: Denies back pain, Denies muscle weakness, Denies neck pain, Denies numbness and Denies tingling Integumentary/Breasts Skin/Breast: Denies pruritus, Denies erythema, Denies rash and Denies wounds Neurologic Neurologic: Denies behavioral changes, Denies confusion, Denies dizziness, Denies frequent falls, Denies loss of vision, Denies numbness, Denies tingling and Denies weakness Psychiatric Psychiatric: Denies anxiety, Denies behavioral changes, Denies confusion, Denies depression, Denies homicidal ideation and Denies suicidal ideation Endocrine Endocrine: Denies fatigue, Denies flushing and Denies palpitations Hematologic/Lymphatic Hematologic/Lymphatic: Denies easy bruising Allergic/Immunologic Allergic/Immunologic: Denies urticaria, Denies throat swelling and Denies wheezing Patient History <Gayle Logan PA-C - Last Filed: 02/26/22 20:28> Medical History Actinic keratoses (Unknown) Anxiety (Unknown) Arthralgia of elbow Bilateral ankle pain Bilateral wrist pain Carpal tunnel syndrome (~11/2016) Chickenpox (Unknown) Depression (Unknown) Excessive daytime sleepiness Fatigue GERD (gastroesophageal reflux disease) (Unknown) Major depressive disorder, recurrent, in partial remission Migraines (Unknown) Overweight (BMI 25.0-29.9) Panic disorder without agoraphobia 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 Screening for breast cancer Screening for thyroid disorder Vitamin D deficiency Weight gain Surgical History H/O hand surgery History of third molar tooth extraction History of tonsillectomy Status post appendectomy Family History Father Hyperlipidemia History of four vessel coronary artery bypass graft Cancer Mother Fibromyalgia Peripheral neuropathy Social History household members: none Smoking Status: Never smoker second hand exposure: No alcohol intake: current substance use type: does not use Smoking Status: Never smoker alcohol intake frequency: holidays/special occasions only Substance Use Type: does not use Exam <Gayle Logan PA-C - Last Filed: 02/26/22 20:28> Narrative Exam Narrative: Const General:?cooperative, healthy appearing and comfortable HENMT Head:?normal to inspection Ears:?hearing grossly normal bilaterally Nose:?external nose normal Face and sinus:?normal facial exam and sinuses nontender Mouth:?oral mucosae normal Throat:?posterior oropharynx normal Eyes General:?appearance normal, both eyes and all related structures Neck Neck:?normal visual inspection and no lymphadenopathy noted Resp Effort & Inspection:?normal respiratory effort Auscultation:?clear to auscultation bilaterally Cardio Rate:?regular rate Rhythm:?regular rhythm GI Abdomen is soft, nondistended. Abdomen is tender to palpation in the left lower quadrant. No CVA tenderness. Neuro General:?patient alert, patient awake and patient oriented x3 Initial Vital Signs Initial Vital Signs: Vital Signs Temperature 99.1 F 02/26/22 10:04 Pulse Rate 93 H 02/26/22 10:04 Respiratory Rate 16 02/26/22 10:04 Blood Pressure 140/81 02/26/22 10:04 Pulse Oximetry 100 02/26/22 10:04 Oxygen Delivery Method 02/26/22 10:04 <Miguel Hathaway DO - Last Filed: 03/01/22 07:30> Initial Vital Signs Initial Vital Signs: Vital Signs Temperature 99.1 F 02/26/22 10:04 Pulse Rate 93 H 02/26/22 10:04 Respiratory Rate 16 02/26/22 10:04 Blood Pressure 140/81 10/10/22 10:04 Pulse Oximetry 100 02/26/22 10:04 Oxygen Delivery Method 02/26/22 10:04 Course <Gayle Logan PA-C - Last Filed: 02/26/22 20:28> Orders Ordered: Discontinued Medications Sodium Chloride (Normal Saline 0.9%) 1,000 mls @ 1,000 mls/hr IV BOLUS ONE Stop: 02/26/22 14:16 Last Infusion: 02/26/22 15:24 Dose: 0 mls/hr Documented By: Admin: 02/26/22 13:47 Dose: 1,000 mls/hr Documented By: PELON Morphine Sulfate (Morphine 4 Mg/Ml Inj) 4 mg IV NOW ONE Stop: 02/26/22 13:18 Last Admin: 02/26/22 13:48 Dose: 4 mg Documented By: PELON Ondansetron HCl (Ondansetron 4 Mg/2 Ml Inj) 4 mg IV NOW ONE Stop: 02/26/22 13:18 Last Admin: 02/26/22 13:48 Dose: 4 mg Documented By: PELON Vital Signs Vital signs: Vital Signs - 8 hr 02/26/22 13:54 02/26/22 15:28 Pulse Rate 89 85 Respiratory Rate 18 18 Blood Pressure 163/86 H 151/87 H Pulse Oximetry 100 98 Oxygen Delivery Method Room Air Room Air <Miguel Hathaway DO - Last Filed: 03/01/22 07:30> Orders Ordered: Discontinued Medications Sodium Chloride (Normal Saline 0.9%) 1,000 mls @ 1,000 mls/hr IV BOLUS ONE Stop: 02/26/22 14:16 Last Infusion: 02/26/22 15:24 Dose: 0 mls/hr Documented By: Admin: 02/26/22 13:47 Dose: 1,000 mls/hr Documented By: PELON Morphine Sulfate (Morphine 4 Mg/Ml Inj) 4 mg IV NOW ONE Stop: 02/26/22 13:18 Last Admin: 02/26/22 13:48 Dose: 4 mg Documented By: PELON Ondansetron HCl (Ondansetron 4 Mg/2 Ml Inj) 4 mg IV NOW ONE Stop: 02/26/22 13:18 Last Admin: 02/26/22 13:48 Dose: 4 mg Documented By: PELON Vital Signs Vital signs: Vital Signs - 8 hr 02/26/22 13:54 02/26/22 15:28 Pulse Rate 89 85 Respiratory Rate 18 18 Blood Pressure 163/86 H 151/87 H Pulse Oximetry 100 98 Oxygen Delivery Method Room Air Room Air MDM - GI Bleed <Gayle Logan PA-C - Last Filed: 02/26/22 20:28> Lab Data Result diagrams: 02/26/22 11:45 02/26/22 11:45 Labs: Lab Results 02/26/22 02/26/22 02/26/22 Range/Units 11:45 11:45 14:45 WBC 12.6 H (4.5-11.0) X10^3/uL RBC 4.69 (4.0-5.2) X10^6/uL Hgb 14.0 (12.0-16.0) g/dL Hct 41.5 (36-46) % MCV 88.6 (80-100) fL MCH 29.8 (26-34) PG MCHC 33.7 (30-36) % RDW 13.5 (11.6-14.8) % Plt Count 373 (150-400) X10^3/uL Neut % (Auto) 76.2 H (50-75) % Lymph % (Auto) 17.7 L (25-40) % Bradley % (Auto) 4.8 (3-14) % Eos % (Auto) 0.7 L (2-4) % Baso % (Auto) 0.6 (0-2) % Neut # (Auto) 9600 H (3324-6592) /uL Lymph # (Auto) 2200 (5880-6803) /uL Bradley # (Auto) 600 (0-900) /uL Eos # (Auto) 100 (0-450) /uL Baso # (Auto) 100 (0-100) /uL Sodium 137 (137-145) mmol/L Potassium 3.6 (3.4-5.1) mmol/L Chloride 101 (98-107) mmol/L Carbon Dioxide 26 (22-32) mmol/L BUN 12 (7-17) mg/dL Creatinine 0.67 (0.52-1.04) mg/dL Estimated GFR > 60 (>60) mL/min BUN/Creatinine Ratio 17.9 (6-22) Glucose 112 H (70-100) mg/dL Calcium 9.0 (8.4-10.2) mg/dL Total Bilirubin 0.4 (0.2-1.3) mg/dL AST 24 (14-36) IU/L ALT 29 (<35) IU/L Alkaline Phosphatase 113 (38-126) U/L Total Protein 7.3 (6.3-8.2) g/dL Albumin 4.3 (3.5-5.0) g/dL Globulin 3.0 (1.7-4.1) g/dL Albumin/Globulin Ratio 1.4 (1.0-2.8) Urine RBC 1-5/hpf (0-5/HPF) Urine WBC 0-1/hpf (0-5/HPF) Ur Squamous Epith Cells 1-5 /hpf (0-5/HPF) Urine Bacteria None seen (None) Urine Mucus 1+ H (Negative) Ur Culture Indicated? Cult not indicated Point of Care Testing Stool Occult Blood Positive Urine Dip Bedside Urine Glucose Negative Bedside Urine Bilirubin - Negative Bedside Urine Ketone +++ 80 Urine Specific [place] 1.010 Bedside Urine Occult Blood +/- Bedside Urine pH 7.0 Bedside Urine Protein - Negative Bedside Urine Urobilinogen - Negative Bedside Urine Nitrite - Negative Bedside Urine Leukocytes - Negative Esterase Imaging Data CT scan - abdomen/pelvis: Radiologist's Impression: PROCEDURE:? CT ABDOMEN PELVIS W CON ? INDICATIONS:? Left lower quadrant pain, bright red blood per rectum ? TECHNIQUE:? After the administration of intravenous contrast, axial sections acquired from the lung bases to the pubic symphysis.? Coronal and sagittal reformats were performed.? For radiation dose reduction, the following was used:? automated exposure control, adjustment of mA and/or kV according to patient size.? ? COMPARISON:? None. ? FINDINGS: ? Lower thorax: The lung bases are clear.? Heart size normal.? No hiatal hernia. ? Liver:? Normal in size and attenuation. No contour deformity present.? 1.9 cm simple left hepatic cyst ? Biliary system:? No calcified cholelithiasis or pericholecystic inflammation.? No intra or extrahepatic bile duct dilatation. ? Pancreas:? Unremarkable without mass or inflammation evident. ? Spleen:? Normal in size and density. ? Adrenals:? Normal morphology and density. ? Reproductive system:? Unremarkable as visualized. ? Urinary system:? Normal renal size and attenuation. No renal calculi, hydronephrosis, or solid mass present.? Urinary bladder unremarkable. ? Gastrointestinal system:? There is long segment wall thickening and pericolonic inflammatory change involving the left colon.? No evidence of abscess or free air.? No bowel obstruction. ? Appendix:? Appendectomy ? Peritoneal spaces:? No mesenteric or retroperitoneal adenopathy.? No free air.? No free fluid.? ? Vasculature:? The IVC, aorta and iliac vasculature are unremarkable. ? Abdominal wall:? Abdominal wall intact without evidence of ventral or inguinal hernias. ? Musculoskeletal:? Normal bone mineralization.? No acute fractures.? ? IMPRESSION: ? 1. Left-sided colitis.? The entire left colon shows wall thickening and pericolonic inflammatory change without evidence abscess, perforation obstruction. ? Approved by: Ganesh Pyle M.D. on 02/26/2022 at 13:59? [facility] Narrative Medical decision making narrative: 56-year-old female with past medical history migraine presents to the ED with 2 days of bloody stools. Concern for diverticulitis versus hemorrhoids versus polyps versus gastroenteritis versus other. Will obtain labs, lactate, UA, CT abdomen pelvis. CT abdomen pelvis shows left-sided colitis, entire left colon shows wall thickening and pericolonic inflammatory change without evidence of abscess, perforation, obstruction. Patient's symptoms likely due to gastroenteritis. Patient was given morphine, Zofran IV fluids in the ED. pain responded well to morphine. Discharge patient home with recommendation for good hydration, prescription for Levsin. ED return precautions were discussed with patient. Patient verbalized understanding. <Miguel Hathaway, DO - Last Filed: 03/01/22 07:30> Lab Data Labs: Lab Results 02/26/22 02/26/22 02/26/22 Range/Units 11:45 11:45 14:45 WBC 12.6 H (4.5-11.0) X10^3/uL RBC 4.69 (4.0-5.2) X10^6/uL Hgb 14.0 (12.0-16.0) g/dL Hct 41.5 (36-46) % MCV 88.6 (80-100) fL MCH 29.8 (26-34) PG MCHC 33.7 (30-36) % RDW 13.5 (11.6-14.8) % Plt Count 373 (150-400) X10^3/uL Neut % (Auto) 76.2 H (50-75) % Lymph % (Auto) 17.7 L (25-40) % Bradley % (Auto) 4.8 (3-14) % Eos % (Auto) 0.7 L (2-4) % Baso % (Auto) 0.6 (0-2) % Neut # (Auto) 9600 H (3725-3986) /uL Lymph # (Auto) 2200 (6758-6575) /uL Bradley # (Auto) 600 (0-900) /uL Eos # (Auto) 100 (0-450) /uL Baso # (Auto) 100 (0-100) /uL Sodium 137 (137-145) mmol/L Potassium 3.6 (3.4-5.1) mmol/L Chloride 101 (98-107) mmol/L Carbon Dioxide 26 (22-32) mmol/L BUN 12 (7-17) mg/dL Creatinine 0.67 (0.52-1.04) mg/dL Estimated GFR > 60 (>60) mL/min BUN/Creatinine Ratio 17.9 (6-22) Glucose 112 H (70-100) mg/dL Calcium 9.0 (8.4-10.2) mg/dL Total Bilirubin 0.4 (0.2-1.3) mg/dL AST 24 (14-36) IU/L ALT 29 (<35) IU/L Alkaline Phosphatase 113 (38-126) U/L Total Protein 7.3 (6.3-8.2) g/dL Albumin 4.3 (3.5-5.0) g/dL Globulin 3.0 (1.7-4.1) g/dL Albumin/Globulin Ratio 1.4 (1.0-2.8) Urine RBC 1-5/hpf (0-5/HPF) Urine WBC 0-1/hpf (0-5/HPF) Ur Squamous Epith Cells 1-5 /hpf (0-5/HPF) Urine Bacteria None seen (None) Urine Mucus 1+ H (Negative) Ur Culture Indicated? Cult not indicated Point of Care Testing Stool Occult Blood Positive Urine Dip Bedside Urine Glucose Negative Bedside Urine Bilirubin - Negative Bedside Urine Ketone +++ 80 Urine Specific [place] 1.010 Bedside Urine Occult Blood +/- Bedside Urine pH 7.0 Bedside Urine Protein - Negative Bedside Urine Urobilinogen - Negative Bedside Urine Nitrite - Negative Bedside Urine Leukocytes - Negative Esterase Discharge Plan Departure Patient Disposition: Home Clinical Impression: Colitis Instructions: DI for Colitis Activity Restrictions/Additional Instructions: You were evaluated in the ED today for abdominal pain, bloody stools. Your labs, urine were normal. Your CT abdomen pelvis shows colitis, which is a inflammation of your colon due to gastroenteritis, which is food poisoning. Please continue to stay well hydrated. You may take Levsin for abdominal cramping. Return to the ED if your symptoms worsen, you experience fevers, shortness of breath, increased bleeding. Prescriptions: New hyoscyamine sulfate [Levsin] 0.125 mg tablet 0.25 mg PO QID PRN (Reason: dyspepsia) Qty: 30 0RF No Action [Massage Therapy] 1 each TOP 2XMONTH Qty: 24 0RF multivitamin [Multiple Vitamins] 1 EACH tablet 1 tab PO QDAY Qty: 0 venlafaxine 150 mg capsule,extended release 24hr See Rx Instructions .ROUTE .COMPLEX Qty: 90 3RF Dose Instruction: TAKE 1 CAPSULE BY MOUTH EVERY DAY Rx Instructions: TAKE 1 CAPSULE BY MOUTH EVERY DAY hydroxyzine HCl 25 mg tablet 25 mg PO QID PRN (Reason: anxiety or insomnia) Qty: 90 3RF Rx Instructions: Take 1 tab by mouth up to 4x/day as needed for anxiety or insomnia Referrals: Smith Rodrigues MD [Primary Care Provider] - Visit Report Forms: Patient Portal/API <Miguel Hathaway, DO - Last Filed: 03/01/22 07:30> Cosign ED Attending Cosluisature Attestation: Dr Hathaway Co-Sign Statement: I was available for consultation during this patient's emergency department visit. This chart is signed by myself for administrative purposes only. I did not have direct contact with this patient during this visit. They were seen independently by the APC.
== END 2022-02-26 15:31 | disposition home or self-care (01) ==
PROVIDERS: Emergency Medicine; Emergency Provider Student in an Organized Health Care Education/Training Program; PCP Family Medicine
DX: K52.9 Noninfective gastroenteritis and colitis, unspecified (principal); R11.2 Nausea with vomiting, unspecified; R10.32 Left lower quadrant pain
CPT/HCPCS: 36415; 74177; 80053; 81003; 81015; 82272; 85025; 93005; 93010; 99284; J2270; J2405; Q9967

== ENCOUNTER → 2022-08-09 12:14 | Outpatient (CLI) | payer OTHER, SELFPAY | PROVIDERS: PCP Family Medicine; Visit Provider Registered Nurse Diabetes Educator | DX: N89.8 Other specified noninflammatory disorders of vagina (principal) | CPT/HCPCS: 87210 ==

== ENCOUNTER → 2023-01-08 08:17 | Outpatient (CLI) | payer OTHER, SELFPAY ==
--- NOTE | 2023-01-08 | DI.MG.S_ITS ---
BILATERAL DIGITAL SCREENING MAMMOGRAM 3D/2D WITH CAD: 01/08/2023 CLINICAL: Routine screening. Family history of breast cancer. Comparison is made to exams dated: 09/28/2021 mammogram, 07/01/2020 mammogram, and 05/07/2019 mammogram - [facility]. Both breasts are heterogeneously dense, which may obscure small masses (category c / 51-75% glandular tissue). Current study was also evaluated with a Computer Aided Detection (CAD) system. There are benign calcifications in both breasts. No significant masses, calcifications, or other findings are seen in either breast. There has been no significant interval change. IMPRESSION: BENIGN There is no mammographic evidence of malignancy. A 1 year screening mammogram is recommended. Based on the Tyrer Cuzick model (a risk assessment model) the patient's lifetime risk is 17.5% and her 10 year risk is 5.5%. According to the ACR, ACS, and NCCN guidelines, an annual breast MRI exam along with mammogram is recommended if the patient's lifetime risk is 20% or greater. This exam was interpreted at Station ID: [id number]. NOTE: For mammograms, a report in lay terms will be sent to the patient. Approximately 15% of breast malignancies will not be visualized mammographically. In the management of a palpable breast mass, a negative mammogram must not discourage biopsy of a clinically suspicious lesion. Electronically Signed By: Chavez minor/bill:01/08/2023 17:20:27 letter sent: Normal Exam ACR BI-RADS Category 2: Benign Finding(s) 3342F
== END ==
PROVIDERS: PCP Family Medicine; Referring Provider Family Medicine; Visit Provider Family Medicine
DX: Z12.31 Encounter for screening mammogram for malignant neoplasm of breast (principal); Z80.3 Family history of malignant neoplasm of breast
CPT/HCPCS: 77063; 77067

== ENCOUNTER → 2023-03-21 10:44 | Outpatient (CLI) | payer OTHER, SELFPAY | PROVIDERS: PCP Family Medicine; Referring Provider Family Medicine; Visit Provider Family Medicine | DX: Z23 Encounter for immunization (principal) | CPT/HCPCS: 90471; 90686 ==

== ENCOUNTER 2023-11-13 11:03 | Emergency (ER) | payer OTHER, SELFPAY ==
[2023-11-13 11:08] VITALS: BP 160/92; PULSE 98; RESP 14; TEMP 37.3; O2SAT 100; BMI 31.1
--- NOTE | 2023-11-13 11:12 | EKG_ITS ---
[address] [address] Test Date: 2023-11-13 Pat Name: Jasmine Fernandez Department: Room: Gender: Female [employer]: JORGE : 1965 Requested By: Order Number: [id number] Reading MD: Rommel Monson Measurements Intervals [place] Rate: 87 P: 1 IN: 174 QRS: 6 QRSD: 66 T: 49 QT: 348 QTc: 418 Interpretive Statements Normal sinus rhythm Septal infarct , age undetermined Electronically Signed On 11-13-2023 19:43:21 PDT by Rommel Monson
--- NOTE | 2023-11-13 11:12 | DI.RAD.S_ITS ---
PROCEDURE: XR CHEST 1V INDICATIONS: chest pain TECHNIQUE: One view of the chest was acquired. COMPARISON: None. FINDINGS: Surgical changes and devices: None. Lungs and pleura: Lungs are clear. No pleural effusions or pneumothorax. Mediastinum: Mediastinal contours appear normal. Heart size is normal. Bones and chest wall: No suspicious bony lesions. Overlying soft tissues appear unremarkable. IMPRESSION: No acute cardiopulmonary abnormality is seen. Dictated by: Matt Davidson M.D. on 11/13/2023 at 13:05 Approved by: Matt Davidson M.D. on 11/13/2023 at 13:05
[2023-11-13] MEDS: ASPIRIN 81 MG CHEW TAB 324 MG PO (11:16)
--- NOTE | 2023-11-13 11:21 | PC.NURSE ---
Reports some constipation over the weekend, took laxative on saturday and seemed to work things out yesterday. Pain continues, patient denies dizziness, Shortness of breath and nausea.
[2023-11-13 11:42] LABS: Add Manual Diff / Slide Review NO; Basophils Absolute Auto 100 /uL (0-100); Basophils Percent Auto 0.7 % (0-2); Eosinophils Absolute Auto 200 /uL (0-450); Eosinophils Percent Auto 1.6 % (2-4); Hematocrit 42.9 % (36-46); Hemoglobin 14.3 g/dL (12.0-16.0); Lymphocytes Absolute Auto 4100 /uL (1100-4500); Lymphocytes Percent Auto 37.1 % (25-40); Mean Corpuscular HGB Conc 33.4 % (30-36); Mean Corpuscular Hemoglobin 29.4 PG (26-34); Mean Corpuscular Volume 88.2 fL (80-100); Monocytes Absolute Auto 800 /uL (0-900); Monocytes Percent Auto 7.1 % (3-14); Neutrophils Absolute Auto 5900 /uL (1500-7000); Neutrophils Percent Auto 53.5 % (50-75); Platelet Count 416 X10^3/uL (150-400); Red Blood Cell Count 4.86 X10^6/uL (4.0-5.2); Red Cell Distribution Width 13.2 % (11.6-14.8); White Blood Cell Count 11.1 X10^3/uL (4.5-11.0)
[2023-11-13 11:49] LABS: Alanine Aminotransferase 29 IU/L (<35); Albumin 4.8 g/dL (3.5-5.0); Albumin Globulin Ratio 1.5 (1.0-2.8); Alkaline Phosphatase 92 U/L (38-126); Aspartate Aminotransferase 29 IU/L (14-36); BUN Creatinine Ratio 18.1 (6-22); Bilirubin Total 0.5 mg/dL (0.2-1.3); Blood Urea Nitrogen 15 mg/dL (7-17); Calcium 9.5 mg/dL (8.4-10.2); Carbon Dioxide 31 mmol/L (22-32); Chloride 104 mmol/L (98-107); Creatine Kinase 95 U/L (30-135); Estimated Glomerular Filt Rate > 60 mL/min (>60); Globulin 3.1 g/dL (1.7-4.1); Glucose 88 mg/dL (70-100); Lipase 105 U/L (23-300); Magnesium 2.2 mg/dL (1.6-2.3); Potassium 3.8 mmol/L (3.4-5.1); Sodium 140 mmol/L (137-145); Total Protein 7.9 g/dL (6.3-8.2)
[2023-11-13 12:00] VITALS: BP 165/74; PULSE 84; RESP 22; O2SAT 95
[2023-11-13 12:00] LABS: HEMOLYSIS < 15 (0-50)
[2023-11-13 12:02] LABS: NT-proBNP (BNP-Adult 18+) 22 pg/mL (<125); Troponin I < 0.012 ng/mL (0.01-0.034)
[2023-11-13 12:03] LABS: PTT Partial Thromboplastin Tim 37 SECONDS (25.1-36.5)
--- NOTE | 2023-11-13 12:04 | ED_ITS ---
HPI - Chest Pain General Chief Complaint: Chest Pain Stated Complaint: SIDE PAIN UP SHOULDER DOWN ARM Time Seen by Provider: 11/13/23 11:58 Source: patient Mode of arrival: Ambulatory Limitations: no limitations History of Present Illness HPI narrative: Patient is a 57-year-old female here for evaluation of left sided rib discomfort. Patient states the symptoms started yesterday. It is not worse with palpation. Does not worse with movement. It does hurt when she takes a deep breath. It is now causing pain in her left shoulder. No chest pain. No skin changes. No cough. No shortness of breath. No trauma. Has not tried anything for the symptoms prior to arrival. Related Data Home Medications Medication Instructions Recorded Confirmed multivitamin (Multiple Vitamins 1 tab PO QDAY ##0 11/26/16 08/23/23 tablet) famotidine 20 mg tablet 20 mg PO DAILY Acid reflux 08/23/23 08/23/23 Previous Rx's Medication Instructions Recorded [Massage Therapy] 1 each topical 2XMONTH ##24 06/03/18 cyclobenzaprine 5 mg tablet 5 mg PO BEDTIME PRN muscle spasm 08/23/23 #30 tabs venlafaxine 150 mg 150 mg PO DAILY #90 caps 08/23/23 capsule,extended release 24 hr Allergies Allergy/AdvReac Type Severity Reaction Status Date / Time Sulfa (Sulfonamide Allergy Mild FACIAL Verified 11/13/23 11:08 Antibiotics) SWELLING [SULFA (SULFONAMIDE AND HIVES ANTIBIOTICS)] Review of Systems Review of Systems Narrative: See HPI Patient History Medical History Seasonal allergies TMJ (temporomandibular joint syndrome) Colitis Vitamin D deficiency Fatigue Weight gain Screening for thyroid disorder Screening for breast cancer Bilateral ankle pain Bilateral wrist pain Arthralgia of elbow Overweight (BMI 25.0-29.9) Excessive daytime sleepiness Panic disorder without agoraphobia 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 Major depressive disorder, recurrent, in partial remission Carpal tunnel syndrome (~11/2016) Actinic keratoses (Unknown) Anxiety (Unknown) Depression (Unknown) GERD (gastroesophageal reflux disease) (Unknown) Chickenpox (Unknown) Migraines (Unknown) Surgical History H/O hand surgery Status post appendectomy History of tonsillectomy History of third molar tooth extraction Family History Father Hyperlipidemia History of four vessel coronary artery bypass graft Cancer Mother Fibromyalgia Peripheral neuropathy Social History household members: none Smoking Status: Never smoker second hand exposure: No alcohol intake: current substance use type: does not use Smoking Status: Never smoker alcohol intake frequency: a few times a week Substance Use Type: does not use Exam Initial Vital Signs Initial Vital Signs: Vital Signs Temperature 99.1 F 11/13/23 11:08 Pulse Rate 98 H 11/13/23 11:08 Respiratory Rate 14 11/13/23 11:08 Blood Pressure 160/92 H 11/13/23 11:08 Pulse Oximetry 100 11/13/23 11:08 Oxygen Delivery Method Room Air 11/13/23 11:08 Const General: cooperative, comfortable and No ill appearing HENMT Head: normal to inspection and normocephalic Chest Chest: No crepitus and No tenderness Resp Effort & Inspection: normal respiratory effort Auscultation: clear to auscultation bilaterally Cardio Rate: regular rate Rhythm: regular rhythm GI Inspection: normal to inspection Skin General: no rashes or lesions noted Neuro General: patient alert, patient awake, patient oriented x3 and moves all extremities Extrem General: No edema Course Orders Ordered: ED Orders 11/13/23 11:12 XR chest 1V Stat EKG-12 Lead Stat 11/13/23 11:16 Complete Blood Count AUTO DIFF Stat Comprehensive Metabolic Panel Stat D Dimer Stat Lipase Stat Magnesium Stat NT-proBNP (BNP-Adult 18+) Stat PTT Partial Thromboplastin Ken Stat Prothrombin Time INR Stat Troponin & CK Cardiac Panel Stat Discontinued Medications Aspirin (Aspirin 81 Mg Chew Tab) 324 mg PO NOW ONE Stop: 11/13/23 11:13 Last Admin: 11/13/23 11:16 Dose: 324 mg Documented By: JHOAN Vital Signs Vital signs: Vital Signs - 8 hr 11/13/23 11:08 11/13/23 12:00 11/13/23 12:00 Temperature 99.1 F Pulse Rate 98 H 84 Respiratory Rate 14 22 Blood Pressure 160/92 H 165/74 H Pulse Oximetry 100 95 Oxygen Delivery Method Room Air 11/13/23 12:30 11/13/23 12:30 11/13/23 13:01 Temperature Pulse Rate 82 93 H Respiratory Rate 23 Blood Pressure 137/84 Pulse Oximetry 97 100 Oxygen Delivery Method MDM - Chest Pain Lab Data Attestation: I reviewed the patient's lab results. 11/13/23 11:16 11/13/23 11:16 Labs: Lab Results 11/13/23 Range/Units 11:16 WBC 11.1 H (4.5-11.0) X10^3/uL RBC 4.86 (4.0-5.2) X10^6/uL Hgb 14.3 (12.0-16.0) g/dL Hct 42.9 (36-46) % MCV 88.2 (80-100) fL MCH 29.4 (26-34) PG MCHC 33.4 (30-36) % RDW 13.2 (11.6-14.8) % Plt Count 416 H (150-400) X10^3/uL Neut % (Auto) 53.5 (50-75) % Lymph % (Auto) 37.1 (25-40) % [place] % (Auto) 7.1 (3-14) % Eos % (Auto) 1.6 L (2-4) % Baso % (Auto) 0.7 (0-2) % Neut # (Auto) 5900 (5493-8193) /uL Lymph # (Auto) 4100 (5923-9224) /uL [place] # (Auto) 800 (0-900) /uL Eos # (Auto) 200 (0-450) /uL Baso # (Auto) 100 (0-100) /uL PT 11.0 (9.4-12.5) SECONDS INR 1.0 (0.9-1.3) APTT 37 H (25.1-36.5) SECONDS D-Dimer 497 (<500) ng/ml Sodium 140 (137-145) mmol/L Potassium 3.8 (3.4-5.1) mmol/L Chloride 104 (98-107) mmol/L Carbon Dioxide 31 (22-32) mmol/L BUN 15 (7-17) mg/dL Creatinine 0.83 (0.52-1.04) mg/dL Estimated GFR > 60 (>60) mL/min BUN/Creatinine Ratio 18.1 (6-22) Glucose 88 (70-100) mg/dL Calcium 9.5 (8.4-10.2) mg/dL Magnesium 2.2 (1.6-2.3) mg/dL Total Bilirubin 0.5 (0.2-1.3) mg/dL AST 29 (14-36) IU/L ALT 29 (<35) IU/L Alkaline Phosphatase 92 (38-126) U/L Total Creatine Kinase 95 (30-135) U/L Troponin I < 0.012 (0.01-0.034) ng/mL NT-Pro-B Natriuret Pep 22 (<125) pg/mL Total Protein 7.9 (6.3-8.2) g/dL Albumin 4.8 (3.5-5.0) g/dL Globulin 3.1 (1.7-4.1) g/dL Albumin/Globulin Ratio 1.5 (1.0-2.8) Lipase 105 (23-300) U/L Imaging Data Chest x-ray: Radiologist's Impression: PROCEDURE: XR CHEST 1V INDICATIONS: chest pain TECHNIQUE: One view of the chest was acquired. COMPARISON: None. FINDINGS: Surgical changes and devices: None. Lungs and pleura: Lungs are clear. No pleural effusions or pneumothorax. Mediastinum: Mediastinal contours appear normal. Heart size is normal. Bones and chest wall: No suspicious bony lesions. Overlying soft tissues appear unremarkable. IMPRESSION: No acute cardiopulmonary abnormality is seen. ECG Data Attestation: I personally reviewed and interpreted this ECG as follows: Interpretation: Sinus rhythm Ventricular rate of 87 Normal axis Normal QRS Normal QTC No ST T wave changes MDM Narrative Medical decision making narrative: Skin changes so no signs of zoster. Troponin is negative. D-dimer negative. Chest x-ray is unremarkable. No signs of pneumonia. Low suspicion for ACS. Low suspicion for PE. LFTs unremarkable. Lipase is unremarkable. She has no abdominal pain. No urinary symptoms. Unsure the exact etiology of the patient's symptoms but I will hold on further radiologic studies for now. Will discharge patient home with return precautions. She expressed understanding and agreement with plan. Discharge Plan Departure Patient Disposition: Home Clinical Impression: Left-sided chest wall pain Instructions: DI for Atypical Chest Pain Activity Restrictions/Additional Instructions: Continue to take all of your medications as directed. If you start to develop new symptoms such as coughing, fevers, worsening pain, skin rash or any other new symptoms please return to the emergency department for further evaluation. Prescriptions: No Action [Massage Therapy] 1 each TOP 2XMONTH Qty: 24 0RF famotidine 20 mg tablet 20 mg PO DAILY Patient Comments: Used to take Ranitidine until it was recalled cyclobenzaprine 5 mg tablet 5 mg PO BEDTIME PRN (Reason: muscle spasm) Qty: 30 0RF venlafaxine 150 mg capsule,extended release 24hr 150 mg PO DAILY Qty: 90 4RF multivitamin [Multiple Vitamins] 1 EACH tablet 1 tab PO QDAY Qty: 0 Referrals: Oneida Snell MD [Primary Care Provider] - Stand Alone Forms: Patient Portal/API
[2023-11-13 12:17] LABS: D Dimer 497 ng/ml (<500)
[2023-11-13 12:30] VITALS: BP 137/84; PULSE 82; O2SAT 97
[2023-11-13 13:01] VITALS: PULSE 93; RESP 23; O2SAT 100
[2023-11-13 13:02] VITALS: BP 138/83; PULSE 86; RESP 17; O2SAT 100
== END 2023-11-13 13:38 | disposition home or self-care (01) ==
PROVIDERS: Emergency Provider Emergency Medicine; PCP Family Medicine
DX: R07.89 Other chest pain (principal); R79.89 Other specified abnormal findings of blood chemistry
CPT/HCPCS: 36415; 71045; 80053; 82550; 83690; 83735; 83880; 84484; 85025; 85379; 85610; 85730; 93005; 99284

== ENCOUNTER → 2024-02-19 18:53 | Outpatient (CLI) | payer OTHER, SELFPAY | PROVIDERS: PCP Family Medicine; Referring Provider Internal Medicine; Visit Provider Internal Medicine | DX: Z23 Encounter for immunization (principal) | CPT/HCPCS: 90471; 90656 ==

== ENCOUNTER → 2024-03-09 08:11 | Outpatient (CLI) | payer OTHER, SELFPAY ==
--- NOTE | 2024-03-09 08:13 | DI.MG.S_ITS ---
BILATERAL DIGITAL SCREENING MAMMOGRAM 3D/2D WITH CAD: 03/09/2024 CLINICAL: Routine screening. Family history of breast cancer. Comparison is made to exams dated: 01/08/2023 mammogram, 09/28/2021 mammogram, and 07/01/2020 mammogram - [facility]. The breasts are heterogeneously dense, which may obscure small masses (category c / 51-75% glandular tissue). Current study was also evaluated with a Computer Aided Detection (CAD) system. There are benign calcifications in both breasts. No significant masses, calcifications, or other findings are seen in either breast. There has been no significant interval change. IMPRESSION: BENIGN There is no mammographic evidence of malignancy. A 1 year screening mammogram is recommended. Based on the Tyrer Cuzick model (a risk assessment model) the patient's lifetime risk is 17.3% and her 10 year risk is 5.8%. According to the ACR, ACS, and NCCN guidelines, an annual breast MRI exam along with mammogram is recommended if the patient's lifetime risk is 20% or greater. This exam was interpreted at Station ID: [id number]. NOTE: For mammograms, a report in lay terms will be sent to the patient. Approximately 15% of breast malignancies will not be visualized mammographically. In the management of a palpable breast mass, a negative mammogram must not discourage biopsy of a clinically suspicious lesion. Electronically Signed By: Chavez minor/bill:03/09/2024 08:50:17 letter sent: Normal Exam ACR BI-RADS Category 2: Benign
== END ==
PROVIDERS: PCP Family Medicine; Referring Provider Family Medicine; Visit Provider Family Medicine
DX: Z12.31 Encounter for screening mammogram for malignant neoplasm of breast (principal); Z80.3 Family history of malignant neoplasm of breast; R92.333 Mammographic heterogeneous density, bilateral breasts
CPT/HCPCS: 77063; 77067

== ENCOUNTER → 2024-07-15 08:35 | Outpatient (CLI) | payer OTHER, SELFPAY ==
[2024-07-15 09:49] LABS: Hemoglobin A1C% w Est Avg Glu 5.1 % (4.0-6.0)
[2024-07-15 10:08] LABS: Cholesterol 250 mg/dL (140-199); HDL Cholesterol 62 mg/dL (40-60); LDL Cholesterol Calculated 153 mg/dL (<100); Triglycerides 174 mg/dL (35-150)
[2024-07-16 22:41] LABS: Hep C Virus Ab w/Reflex Quant NEGATIVE s/c (NEGATIVE)
== END ==
LOC: LAB 08:36
PROVIDERS: PCP Family Medicine; Referring Provider Family Medicine; Visit Provider Family Medicine
DX: Z13.220 Encounter for screening for lipoid disorders (principal); Z11.59 Encounter for screening for other viral diseases; Z13.1 Encounter for screening for diabetes mellitus
CPT/HCPCS: 36415; 80061; 83036; 86803

== ENCOUNTER → 2024-10-09 08:37 | Outpatient (CLI) | payer OTHER, SELFPAY ==
[2024-10-09 09:18] LABS: Cholesterol 194 mg/dL (140-199); HDL Cholesterol 67 mg/dL (40-60); LDL Cholesterol Calculated 109 mg/dL (<100); Triglycerides 89 mg/dL (35-150)
== END ==
PROVIDERS: PCP Family Medicine; Referring Provider Family Medicine; Visit Provider Family Medicine
DX: E78.5 Hyperlipidemia, unspecified (principal)
CPT/HCPCS: 36415; 80061

== ENCOUNTER → 2025-03-12 08:17 | Outpatient (CLI) | payer OTHER, SELFPAY ==
--- NOTE | 2025-03-12 08:17 | DI.MG.S_ITS ---
MM screening mammo BI: 03/12/2025. BI-RADS: 1 CLINICAL: 59-year old female for bilateral screening mammogram. Tyrer-Cuzick lifetime risk of 20.1%. No personal or first-degree family history of breast cancer. Current reported family history of breast cancer: maternal aunt. PRIOR EXAMS 03/09/2024, 01/08/2023, 09/28/2021, 07/01/2020. MAMMOGRAPHY TECHNIQUE: 2D and 3D (tomosynthesis) digital mammographic views obtained, with additional images as needed for full coverage. Current study was also evaluated with a Computer Aided Detection (CAD) system. DENSITY D. The breasts are extremely dense, which lowers the sensitivity of mammography. MAMMOGRAPHY FINDINGS Bilateral: No suspicious mass, asymmetry, microcalcification, or other abnormality seen. IMPRESSION: * No evidence of malignancy. RECOMMENDATIONS Bilateral * According to the Tyrer-Cuzick Risk Assessment Model, based on the information provided your patient has a greater than 20% lifetime risk for developing breast cancer. Consider supplemental screening with breast MRI and participation in a high risk screening program. * Annual screening mammography. OVERALL ASSESSMENT CATEGORY BI-RADS-1: Negative. The [employer] recommends annual screening mammography beginning at age 40 for women with average risk of breast cancer. ELECTRONICALLY SIGNED: Shaila Hyde M.D. on 03/12/2025 at 05:30:45 PM PT Interpreting Station ID: [id number]
== END ==
LOC: MAMMO 08:17
PROVIDERS: PCP Family Medicine; Referring Provider Family Medicine; Visit Provider Family Medicine
DX: Z12.31 Encounter for screening mammogram for malignant neoplasm of breast (principal); R92.343 Mammographic extreme density, bilateral breasts; Z80.3 Family history of malignant neoplasm of breast
CPT/HCPCS: 77063; 77067